=== PATIENT | female | born 1940 | race Caucasian/White ===

== ENCOUNTER 2017-05-05 10:55 | Inpatient (IN) | payer OTHER ==
[~2017-05-05] VITALS: Ht 167.6 cm; Wt 61.7 kg
[2017-05-05] MEDS ORDERED: NORVASC5 MG PO (13:21)
[2017-05-05] MEDS ORDERED: METROPROLOL PO (13:21)
[2017-05-05] MEDS ORDERED: LOS PO (13:22)
[2017-05-05] MEDS ORDERED: GABAPENTIN400 MG PO (13:22)
[2017-05-05] MEDS ORDERED: METFORMIN HCL500 MG PO (13:23)
[2017-05-05] MEDS ORDERED: COMBIGAN EYE DRO5 ML OP (13:23)
[2017-05-07] MEDS ORDERED: PERCOCET 5-3251 EACH PO (15:23)
[2017-05-07] MEDS ORDERED: CLONAZEPAM1 MG PO (15:23)
[2017-05-07] MEDS ORDERED: AMOX1TAB12 PO (15:23)
[2017-05-07] MEDS ORDERED: GABAPENTIN800 MG PO (15:23)
[2017-05-07] MEDS ORDERED: DOCUSATE SODIU100 MG PO (15:23)
== END 2017-05-08 16:26 | DRG 454 ==
LOC: O/R 05-06 04:54 → SURH 05-06 04:54
PROVIDERS: Orthopaedic Surgery Orthopaedic Surgery of the Spine
PROC: 0SG0071 Fusion of Lumbar Vertebral Joint with Autologous Tissue Substitute, Posterior Approach, Posterior Column, Open Approach (ICD-10-PCS; 2017-05-06)
PROC: 0ST20ZZ Resection of Lumbar Vertebral Disc, Open Approach (ICD-10-PCS; 2017-05-06)
PROC: 0SG00AJ Fusion of Lumbar Vertebral Joint with Interbody Fusion Device, Posterior Approach, Anterior Column, Open Approach (ICD-10-PCS; 2017-05-06)
PROC: 07DS3ZZ Extraction of Vertebral Bone Marrow, Percutaneous Approach (ICD-10-PCS; 2017-05-06)
PROC: 0SG00A0 Fusion of Lumbar Vertebral Joint with Interbody Fusion Device, Anterior Approach, Anterior Column, Open Approach (ICD-10-PCS; principal; 2017-05-06 10:00)
DX: M47.16 Other spondylosis with myelopathy, lumbar region (principal); M51.06 Intervertebral disc disorders with myelopathy, lumbar region; M48.061 Spinal stenosis, lumbar region without neurogenic claudication; M41.56 Other secondary scoliosis, lumbar region; I10 Essential (primary) hypertension; E11.9 Type 2 diabetes mellitus without complications

== ENCOUNTER → 2017-05-14 | Emergency (ER) | payer OTHER ==
[~2017-05-14] VITALS: Ht 167.6 cm; Wt 61.7 kg
[~2017-05-14] MED LIST: AMOX1TAB12 PO; CLONAZEPAM1 MG PO; COMBIGAN EYE DRO5 ML OP; DOCUSATE SODIU100 MG PO; GABAPENTIN400 MG PO; GABAPENTIN800 MG PO; LOS PO; METFORMIN HCL500 MG PO; METROPROLOL PO; NORVASC5 MG PO; PERCOCET 5-3251 EACH PO
== END | disposition home or self-care (01) ==
LOC: ER 20:09
DX: K29.70 Gastritis, unspecified, without bleeding (principal)

== ENCOUNTER 2019-03-30 07:00 | Day surgery (SDC) | payer OTHER ==
[~2019-03-30] VITALS: Ht 162.6 cm; Wt 148.0 kg
[2019-03-30] MEDS ORDERED: CLONAZEPAM0.5 MG PO (13:39)
[2019-03-30] MEDS ORDERED: MEDROLPACK PO (13:39)
[2019-03-30] MEDS ORDERED: PERCOCET 5-3251 EACH PO (13:39)
[2019-03-30] MEDS ORDERED: AMOX-CLAV 875-1 EACH PO (13:39)
[2019-03-30] MEDS ORDERED: NEURONTIN800 MG PO (13:39)
[2019-03-30] MEDS ORDERED: COLACE100 MG PO (13:40)
== END 2019-03-31 08:00 | disposition home or self-care (01) ==
LOC: CIR.AMB 07:00 → O/R 14:07 → SURH 14:07 → EDSTATUS 14:15 → SURH 14:15 → O/R 15:48 → SURH 15:48 → CIR.AMB 03-31 08:00 → SURH 03-31 13:54 → O/R 03-31 13:54
DX: M48.061 Spinal stenosis, lumbar region without neurogenic claudication (principal); M47.27 Other spondylosis with radiculopathy, lumbosacral region